=== PATIENT | female | born 1935 | race Caucasian/White ===

== ENCOUNTER 2024-07-24 15:59 | Emergency (ER) | payer OTHER, MEDICARE ==
[~2024-07-24] VITALS: Ht 162.6 cm; Wt 62.1 kg
[~2024-07-24 15:59] MED LIST: APIX2.5T PO; ASPI-1393 PO; DILT30TA35 PO; DILT60TA3 PO; HYDR25TA4 PO; POTA10TA15 PO
[2024-07-24 16:18] VITALS: BP_SYST 136; PULSE 74; RESP 18; TEMP 97.5; O2SAT 97
[2024-07-24 19:04] VITALS: BP_SYST 167; PULSE 76; RESP 18; TEMP 98.3; O2SAT 96
[2024-07-24] MEDS ORDERED: DIPHTH,PERTUSS(ACELL),TET VAC 0.5 ML VIAL (Tdap) I.M. ONE (19:15)
== END 2024-07-24 19:20 | disposition home or self-care (01) ==
LOC: SED 15:59
DX: S50.312A Abrasion of left elbow, initial encounter (principal); S09.8XXA Other specified injuries of head, initial encounter; I48.91 Unspecified atrial fibrillation; E03.9 Hypothyroidism, unspecified; M79.7 Fibromyalgia; Z88.8 Allergy status to other drugs, medicaments and biological substances; Z79.899 Other long term (current) drug therapy; Z79.2 Long term (current) use of antibiotics; Z79.82 Long term (current) use of aspirin; W18.39XA Other fall on same level, initial encounter; Y93.89 Activity, other specified; Y92.89 Other specified places as the place of occurrence of the external cause; Y99.8 Other external cause status
CPT/HCPCS: 70450-TC; 99284